=== PATIENT | male | born 1965 | race Caucasian/White ===

== ENCOUNTER 2017-09-28 18:15 | Inpatient (IN) | payer SELFPAY ==
[~2017-09-28] VITALS: Ht 182.9 cm; Wt 105.2 kg
[2017-09-28 18:51] LABS: Basophils # (auto) 0 uL; Basophils % (auto) 0.5 % (0.0-2.0); Eosinophils # (auto) 0 uL; Eosinophils % (auto) 0.3 % (0.0-7.0); Lymphocytes # (auto) 1.2 uL; Neutrophils # (auto) 5.4 uL
[2017-09-28 18:53] LABS: Hematocrit 54.6 % (41.0-53.0); Hemoglobin 19.2 g/dL (13.5-17.5); Lymphocytes % (auto) 15.9 % (10.0-50.0); Mean Corpuscular Hemoglobin 33.4 pg (28.0-32.0); Mean Corpuscular Hgb Conc. 35.1 g/dL (32.0-36.0); Monocytes # (auto) 0.9 uL; Monocytes % (auto) 11.6 % (0.0-12.0); Neutrophils % (auto) 71.7 % (37.0-80.0); Nucleated Red Blood Cells % 0.1 %; Platelet Count (auto) 176 10^3/uL (140-450); Red Blood Cells 5.75 10^6/uL (4.5-5.90); Red Cell Distribution Width 13.6 % (11.8-14.3); White Blood Cell 7.6 10^3/uL (4.4-10.8)
[2017-09-28 19:11] LABS: Alanine Aminotransferase 112 U/L (16-61); Albumin 3.8 g/dL (3.4-5.0); Anion Gap 9 (5-15); Aspartate Aminotransferase 75 U/L (15-37); Blood Urea Nitrogen 10 mg/dL (7-18); Calcium 8.5 mg/dL (8.5-10.1); Carbon Dioxide 24 mmol/L (21-32); Chloride 106 mmol/L (98-107); GFR African American 138 mL/min; GFR Non-African American 114 mL/min; Glucose 91 mg/dL (74-106); Potassium 3.7 mmol/L (3.5-5.1); Sodium 139 mmol/L (136-145)
[2017-09-28 19:12] LABS: Urine Bacteria NONE SEEN /hpf (None Seen); Urine Blood Negative /uL (Negative); Urine Specific Gravity 1.001 (1.001-1.035); Urine WBC <1 /hpf (0 - 3)
[2017-09-28 19:15] LABS: Alkaline Phosphatase 121 U/L (45-117); Total Protein 8.1 g/dL (6.4-8.2)
[2017-09-28 20:44] LABS: Partial Thromboplastin Time 29.8 sec (23.78-33.04); Prothrombin Time 10.7 sec (9.27-12.13)
[2017-09-28] MEDS ORDERED: ACETAMINOPHEN 325 MG TAB PO PRN (22:30)
[2017-09-28] MEDS ORDERED: ONDANSETRON HCL 4 MG/2 ML VIAL IV PRN (22:30)
[2017-09-28] MEDS ORDERED: TEMAZEPAM 15 MG CAP PO PRN (22:30)
[2017-09-28] MEDS ORDERED: MORPHINE SULF INJ 2 MG/ML SYRINGE 1ML IV PRN (22:30)
[2017-09-28] MEDS ORDERED: NITROGLYCERIN 0.4 MG SL TAB SL PRN (22:30)
[2017-09-28] MEDS ORDERED: cloNIDine HCL 0.1 MG TAB PO PRN (22:30)
[2017-09-28] MEDS ORDERED: cloNIDine HCL 0.1 MG TAB ONE (22:56)
[2017-09-28] MEDS ORDERED: cloNIDine HCL 0.1 MG TAB PO ONE (23:30)
[2017-09-28 23:45] VITALS: BP 152/104
[2017-09-29 05:01] VITALS: BP 149/98
[2017-09-29 05:56] LABS: Basophils # (auto) 0 uL; Basophils % (auto) 0.5 % (0.0-2.0); Eosinophils # (auto) 0.1 uL; Eosinophils % (auto) 0.9 % (0.0-7.0); Hematocrit 49.5 % (41.0-53.0); Hemoglobin 17.4 g/dL (13.5-17.5); Lymphocytes % (auto) 30.5 % (10.0-50.0); Mean Corpuscular Hemoglobin 33.4 pg (28.0-32.0); Mean Corpuscular Hgb Conc. 35.1 g/dL (32.0-36.0); Mean Corpuscular Volume 95.2 fL (80.0-100.0); Monocytes # (auto) 0.8 uL; Neutrophils # (auto) 3.6 uL; Neutrophils % (auto) 56.1 % (37.0-80.0); Nucleated Red Blood Cells % 0.1 %; Platelet Count (auto) 159 10^3/uL (140-450); Red Cell Distribution Width 13.5 % (11.8-14.3); White Blood Cell 6.5 10^3/uL (4.4-10.8)
[2017-09-29 06:16] LABS: Cholesterol 181 mg/dL (< 200); HDL Cholesterol 37 mg/dL (40-59); LDL Cholesterol 137 mg/dL (< 100); Triglycerides 111 mg/dL (< 150)
[2017-09-29 06:19] LABS: Albumin 3.2 g/dL (3.4-5.0); BUN/Creatinine Ratio 11.4; Bilirubin, Total 0.9 mg/dL (0.2-1.0); Calcium 8.2 mg/dL (8.5-10.1); Potassium 3.4 mmol/L (3.5-5.1); Total Protein 6.8 g/dL (6.4-8.2)
[2017-09-29 09:00] VITALS: BP 134/93
[2017-09-29] MEDS ORDERED: FAMOTIDINE 20 MG TAB PO SCH (10:00)
[2017-09-29] MEDS ORDERED: ASPirin 81 mg TAB PO SCH (10:00)
[2017-09-29] MEDS ORDERED: amLODIPine BESYLATE 5 MG TAB PO SCH (10:00)
[2017-09-29 13:00] VITALS: BP 143/98
[2017-09-29] MEDS ORDERED: AML5T PO (13:12)
[2017-09-29] MEDS ORDERED: POTASSIUM CHL 20 Meq TABLET PO ONE (13:15)
[2017-09-29] MEDS ORDERED: amLODIPine BESYLATE 5 MG TAB PO ONE (13:30)
[2017-09-29 15:03] VITALS: BP 143/90
[2017-09-29] MEDS ORDERED: ATORVASTATIN 20 MG TAB PO SCH (22:00)
[2017-10-01 16:34] LABS: Hepatitis B Surface Antibody Negative
[2017-10-01 17:13] LABS: Hepatitis A Total Antibody Negative
[2017-10-01 18:52] LABS: Hepatitis B Surface Antigen Negative (Negative)
[2017-10-01 18:53] LABS: Hepatitis B Core Total AB Negative; Hepatitis C Antibody Negative (Negative)
== END 2017-09-29 15:36 | disposition home or self-care (01) | DRG 313 ==
LOC: ER 18:15 → TELE 18:16 → TELE-WESTW 23:25
PROVIDERS: ADMIT Nurse Practitioner; ATTEND Nurse Practitioner
DX: R07.89 Other chest pain (principal); I10 Essential (primary) hypertension; F17.210 Nicotine dependence, cigarettes, uncomplicated; F10.10 Alcohol abuse, uncomplicated; K70.9 Alcoholic liver disease, unspecified; E87.6 Hypokalemia; E78.5 Hyperlipidemia, unspecified; E66.9 Obesity, unspecified; Z82.49 Family history of ischemic heart disease and other diseases of the circulatory system; Z68.31 Body mass index [BMI] 31.0-31.9, adult
CPT/HCPCS: 36415; 71046; 80053; 80061; 81001; 83735; 83880; 84443; 84484; 85025; 85379; 85610; 85730; 86704; 86706; 86708; 86803; 87340; 93005; 93306; 94761